=== PATIENT | female | born 1940 | race Caucasian/White ===

== ENCOUNTER 2017-04-25 05:42 | Day surgery (SDC) | payer OTHER ==
--- NOTE | 2017-04-24 09:32 | PREOPHP ---
DATE OF ADMISSION: 04/25/2017 HISTORY OF PRESENT ILLNESS: This 76-year-old patient is admitted for elective cataract surgery of t he right eye. The patient has had progressive deterioration of vision over the last 2 to 3 years wi thout prior history of injury to the eye. 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 In addition, the patient has a dry e ye condition and uses Restasis. Systemic history is positive for hypertension which is currently be ing controlled with aspirin and Diovan. The aspirin was discontinued 1 week prior to surgery. ALLERGIES: THERE ARE NO KNOWN ALLERGIES. PHYSICAL EXAMINATION: The visual acuity with best correction is 20/50 in the right eye and 20/40 in the left eye. Slit lamp examination reveals anterior cortical nuclear sclerotic and posterior subc apsular cataract changes in the right eye. Applanation tonometry is 13 mmHg in the right eye and 12 mmHg in the left eye. 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 DIAGNOSIS: Cataract, right eye. PLAN: Cataract extraction with lens implant, right eye. The risks and alternatives to the surgery have been discussed with the patient as well as the hopeful improvement of visual acuity leading to a greater ability to perform activities of daily living. The patient understands this and consents to proceed with surgery. Dictated By: ISAEL VOGEL/ANNA Conf#: [id number] DID#: [id number]
[~2017-04-25] VITALS: Ht 152.4 cm; Wt 67.2 kg
[2017-04-25] VITALS (7 sets, daily range): BP systolic 125–210; BP diastolic 61–104; PULSE 56–61; RESP 14–16; Ht 152.4 cm; Wt 67.2 kg
[~2017-04-25 05:42] MED LIST: ASPI-727; ATOR40TA68 PO; CIPROFLOXACIN 0.3% 2.5 ML OPH OPER SCH; CLOP75TA27 PO; CYCLOPENTOLATE/PHENYLEPH 2 ML OPH OPER SCH; DICLOFENAC 0.1% 2.5 ML OPH OPER SCH; ENAL5TAB81 PO; FOLIC ACID; TROPICAMIDE 1% 2 ML OPH OPER SCH
[2017-04-25] MEDS ORDERED: CEFAZOLIN 1 GM INJ ONE (06:15)
[2017-04-25] MEDS ORDERED: DEXAMETHASONE 4 MG/ML 1 ML INJ ONE (06:15)
[2017-04-25] MEDS ORDERED: GENTAMICIN 80 MG INJ ONE (06:15)
[2017-04-25] MEDS ORDERED: LIDOCAINE 4% (MPF) 5 ML INJ ONE (06:15)
[2017-04-25] MEDS ORDERED: CARBACHOL 0.01% 1.5 ML OPH INJ ONE (06:15)
[2017-04-25] MEDS ORDERED: EPINEPHrine 1 MG INJ ONE (06:15)
[2017-04-25] MEDS ORDERED: HYALURONATE/CHONDROITIN 1ML OPH INJ ONE (06:16)
[2017-04-25] MEDS ORDERED: PROPOFOL 20 ML ONE (07:00)
[2017-04-25] MEDS ORDERED: LIDOCAINE 1% (MPF) 30 ML INJ ONE (07:02)
[2017-04-25] MEDS ORDERED: CARBACHOL 0.01% 1.5 ML OPH INJ IO ONE (07:05)
[2017-04-25] MEDS ORDERED: HYALURONATE/CHONDROITIN 1ML OPH INJ IO ONE (07:05)
[2017-04-25] MEDS ORDERED: DEXAMETHASONE 4 MG/ML 1 ML INJ INJ ONE (07:05)
[2017-04-25] MEDS ORDERED: CEFAZOLIN 1 GM INJ INJ ONE (07:05)
[2017-04-25] MEDS ORDERED: VALS40TA2 PO (07:07)
[2017-04-25] MEDS ORDERED: OMEP20CA16 PO (07:07)
[2017-04-25] MEDS ORDERED: SOD CHLORIDE 0.9% 1,000 ML IV SCH (07:30)
[2017-04-25] MEDS ORDERED: hydrALAzine 20 MG INJ IV PRN (08:00)
[2017-04-25] MEDS ORDERED: ONDANSETRON 4 MG INJ IV PRN (08:00)
[2017-04-25] MEDS ORDERED: LABETALOL HCL 20MG INJ IV PRN (08:00)
[2017-04-25] MEDS ORDERED: FENTAnyl 50 MCG/ML VIAL IV PRN ×2 (08:00)
[2017-04-25] MEDS ORDERED: HYDROmorphONE (0.2 MG/ML) 10ML SYG IV PRN ×3 (08:00)
[2017-04-25] MEDS ORDERED: MEPERIDINE 25 MG INJ IV PRN (08:00)
--- NOTE | 2017-04-25 09:27 | OPR ---
DATE OF OPERATION: PREOPERATIVE DIAGNOSIS: Cataract, right eye. POSTOPERATIVE DIAGNOSIS: Cataract, right eye. OPERATION PERFORMED: Cataract extraction with lens implant, right eye. SURGEON: Isael dominguez. ANESTHESIA: Local standby. ANESTHESIOLOGIST: Dr. Lewis OPERATION: Phacoemulsification with posterior chamber intraocular lens implant, right eye. PROCEDURE: The patient was brought to the operating room and placed on the table with an IV in plac e and the patient attached to an performance engineer. Oxygen was given via face mask. After some intravenous sedation was administered, local anesthesia was given using Xylocaine 2% with epinephrine, mixed with Marcaine 0.5%. This was given in a lid block and retrobulbar injection. The patient was then prepped and draped in the usual sterile manner. A wire lid speculum was inserted between the lids of the right eye. A Superblade was used to enter t he anterior chamber at the corneoscleral limbus at the 10:30 o'clock position. A separate incision w as made using a 3.0-mm keratome which entered the corneoscleral junction at the 12 o'clock position. Through this 3-mm opening, an irrigating cystotome was introduced into the anterior chamber. The ch jose angel was filled with Viscoat and an anterior capsulotomy was performed. Balanced salt solution was then used for hydrodissection of the lens. A phacoemulsification handpiece was then brought into th e field and introduced into the anterior chamber. The lens nucleus was emulsified using a deep groov e and cracking the nucleus into quadrants. Following this, each quadrant was aspirated and emulsifie d at the pupillary margin. After this was completed, the irrigation/aspiration handpiece was brought to the field, introduced i nto the posterior chamber, and the lens cortical material was removed. When this was completed, digna tional Viscoat was injected into the anterior and posterior chambers. The 3-mm opening had its internal lips enlarged, and then the posterior chamber intraocular lens angelo suring 20.0 diopters (Bausch and Lomb model LI61AO) was then injected into the posterior chamber usi ng the lens injector system. After the leading haptic was introduced into the capsular bag and the l ens optic was present in the center of the eye, the injector was removed and the trailing haptic was grasped with non-toothed forceps and introduced into the capsular fold superiorly. A [place]inskey hook w as then used to rotate the intraocular lens so that the lips were oriented in the horizontal meridia n. One 10-0 nylon suture was placed across the wound. Prior to tying, the irrigation/aspiration handpiece was reintroduced into the anterior chamber to re move the Viscoat. Miochol was instilled to constrict the pupil, and then the 10-0 nylon suture was t ied. The ends were cut short and then the knot was buried. Then, 0.5 mL of dexamethasone and 0.5 mL of Ancef were injected into the sub-Tenon space in the infe rior fornix. Ciloxan drops were then placed on the surface of the eye. The speculum was removed and a patch was applied. The patient then left the operating room in satisfactory condition. Dictated By: ISAEL VOGEL/ANNA Conf#: [id number] DID#: [id number]
== END 2017-04-25 09:18 | disposition home or self-care (01) ==
LOC: SDS 05:42
PROVIDERS: ATTEND Ophthalmology
DX: H25.11 Age-related nuclear cataract, right eye (principal); I10 Essential (primary) hypertension; I25.2 Old myocardial infarction
CPT/HCPCS: 66984; J0171; J0360; J0690; J1100; J1580; V2632

== ENCOUNTER 2019-03-26 06:41 | Day surgery (SDC) | payer OTHER ==
[~2019-03-26] VITALS: Ht 152.4 cm; Wt 64.9 kg
[2019-03-26] VITALS (9 sets, daily range): BP systolic 140–169; BP diastolic 68–84; PULSE 52–72; RESP 12–27; Ht 152.4 cm; Wt 64.9 kg
--- NOTE | 2019-03-26 06:40 | PREOPHP ---
DATE OF ADMISSION: 03/26/2019 HISTORY OF PRESENT ILLNESS: This 75-year-old patient is admitted for elective cataract surgery of th e left eye. The patient has had decreased vision in the left eye which has been progressive in natur e for the past 2 years' time. The patient had cataract surgery performed on the right eye 2 years ag o with good visual results. The patient also has a history of chronic open angle glaucoma, currently being controlled with Travatan-Z topical medication. CURRENT MEDICATIONS: Include: 1. Atorvastatin. 2. Flonase. 3. ProAir. 4. Cozaar. 5. Loratadine. ALLERGIES: There are no known allergies other than CHLORHEXIDINE SOLUTION. PHYSICAL EXAMINATION: The visual acuity with correction is 20/40 in the right eye and 20/80 in the l eft eye. Slit lamp examination reveals a posterior chamber intraocular lens in appropriate position in the right eye and an anterior cortical and nuclear sclerotic cataract in the left eye. Applanatio n tonometry is 8 mmHg in the left eye. Examination of the retina reveals the presence of moderate op tic disc cupping in both eyes. The macular region appears within normal limits. DIAGNOSIS: Cortical and nuclear cataract, left eye. PLAN: Cataract extraction with lens implant, left eye. The risks and alternatives to cataract surge ry have been discussed with the patient as well as the hope for improvement of visual acuity leading to greater ability to perform activities of daily living. The patient understands this and agrees to proceed with surgery. Dictated By: ISAEL VOGEL/ANNA Conf#: [id number] DID#: [id number]
[~2019-03-26 06:41] MED LIST changes: -CIPROFLOXACIN 0.3% 2.5 ML OPH OPER SCH; -CLOP75TA27 PO; -CYCLOPENTOLATE/PHENYLEPH 2 ML OPH OPER SCH; -DICLOFENAC 0.1% 2.5 ML OPH OPER SCH; -ENAL5TAB81 PO; -FOLIC ACID; +OMEP20CA16 PO; -TROPICAMIDE 1% 2 ML OPH OPER SCH; +VALS40TA2 PO
[2019-03-26] MEDS ORDERED: DICLOFENAC 0.1% 2.5 ML OPH OPER SCH (08:00)
[2019-03-26] MEDS ORDERED: CYCLOPENTOLATE/PHENYLEPH 2 ML OPH OPER SCH (08:00)
[2019-03-26] MEDS ORDERED: MOXIFLOXACIN 0.5% 3 ML OPH OPER SCH (08:00)
[2019-03-26] MEDS ORDERED: SOD CHLORIDE 0.9% 1,000 ML IV SCH (08:00)
[2019-03-26] MEDS ORDERED: TROPICAMIDE 1% 15 ML OPH OPER SCH (08:00)
[2019-03-26] MEDS ORDERED: ATOR10TA65 PO (08:16)
[2019-03-26] MEDS ORDERED: OMEP20CA16 PO (08:16)
[2019-03-26] MEDS ORDERED: HYDR25TA6 PO (08:16)
[2019-03-26] MEDS ORDERED: LORA10TA3 PO (08:17)
[2019-03-26] MEDS ORDERED: GENTAMICIN 80 MG INJ ONE (08:25)
[2019-03-26] MEDS ORDERED: CEFAZOLIN 1 GM INJ ONE (08:25)
[2019-03-26] MEDS ORDERED: CARBACHOL 0.01% 1.5 ML OPH INJ ONE (08:25)
[2019-03-26] MEDS ORDERED: TETRACAINE 0.5% 4 ML OPH ONE (08:25)
[2019-03-26] MEDS ORDERED: LIDOCAINE 4% (MPF) 5 ML INJ ONE (08:25)
[2019-03-26] MEDS ORDERED: DEXAMETHASONE 4 MG/ML 1 ML INJ ONE (08:25)
[2019-03-26] MEDS ORDERED: EPINEPHrine 1 MG INJ ONE (08:26)
[2019-03-26] MEDS ORDERED: NA HYALURONATE/CHONDROITIN 0.5 ML SYG ONE (08:26)
--- NOTE | 2019-03-26 08:34 | PREAC ---
Date/Time of Note Date/Time of Note DATE: 03/26/19 TIME: 08:32 Anesthesia Eval and Record Evaluation Time Pre-Procedure Interview DATE: 03/26/19 TIME: 08:32 Age 78 Sex female NPO: 8 hrs Preoperative diagnosis left cataract Planned procedure left CE with IOL Implant Past Medical History Past Medical History: Includes Cardio: HTN, Dyslipidemia Surgery & Anesthesia Issues No known issue Meds Anticoagulation: No Beta Symone within 24 hr: No Reason Beta Symone not given: Pt. not on B-Symone Reported Medications Loratadine* (Loratadine*) 10 Mg Tablet, 10 MG PO DAILY, #30 TAB 03/26/19 Atorvastatin Calcium (Atorvastatin Calcium) 10 Mg Tablet, 10 MG PO QHS, #30 TAB 03/26/19 Hydrochlorothiazide* (Hydrochlorothiazide*) 25 Mg Tab, 25 MG PO DAILY, #30 TAB 03/26/19 Omeprazole* (Omeprazole*) 20 Mg Capsule.dr, 20 MG PO DAILY, #30 CAP 03/26/19 Discontinued Reported Medications Valsartan* (Diovan*) 40 Mg Tablet, 40 MG PO DAILY, TAB 04/25/17 Omeprazole* (Omeprazole*) 20 Mg Capsule.dr, 20 MG PO DAILY, #30 CAP 04/25/17 Aspirin (Adult Aspirin) 81 Mg Tab.chew 08/04/10 Discontinued Scripts Atorvastatin* (Atorvastatin*) 40 Mg Tablet, 40 MG PO HS for 40 Days, TAB Prov:ROYARONY ASSEMBLER FITTER 07/25/15 Current Medications Diclofenac Sodium (Voltaren 0.1%) 1 drop Q5 MIN X 3 OPER Last administered on 03/26/19at 07:54; Admin Dose 1 DROP; Start 03/26/19 at 08:00; Stop 03/26/19 at 18:00 Tropicamide (Mydriacyl 1%) 1 drop Q5 MIN X3 OPER Last administered on 03/26/19at 07:53; Admin Dose 1 DROP; Start 03/26/19 at 08:00; Stop 03/26/19 at 18:00 Moxifloxacin HCl (Vigamox) 1 drop Q5 MIN X 3 OPER Last administered on 03/26/19at 07:54; Admin Dose 1 DROP; Start 03/26/19 at 08:00; Stop 03/26/19 at 18:00 Cyclopentolate/ Phenylephrine (Cyclomydril Oph 2 ml) 1 drop Q5 MIN X 3 OPER Last administered on 03/26/19at 07:54; Admin Dose 1 DROP; Start 03/26/19 at 08:00; Stop 03/26/19 at 18:00 Sodium Chloride 1,000 ml @ 25 mls/hr Q24H IV ; Start 03/26/19 at 08:00; Stop 03/26/19 at 18:00 Meds reviewed: Yes Allergies Coded Allergies: No Known Drug Allergy (Verified Allergy, Unknown, 03/26/19) Allergies Reviewed: Yes Labs/Studies Labs Reviewed: Reviewed by anesthesiologist test: N/A Studies: ECG (SB), CXR Pre-procedure Exam Airway: Adequate mouth opening Mallampati: Mallampati II Teeth: Normal Lung: Normal Heart: Normal ASA Physical Status ASA physical status: 2 Emergency: None Planned Anesthetic General/MAC: MAC Planned Pain Management Parenteral pain med, Local by surgeon Pre-operative Attestations Prior to commencing anesthesia and surgery, the patient was re-evaluated, there was verification of: *The patient's identity *The results of appropriate recent lab work and preoperative vital signs *The above evaluation not changing prior to induction *Anesthetic plan, risk benefits, alternative and complications discussed with patient/family; questions answered; patient/family understands, accepts and wishes to proceed. TRUDY JOSEPH BRAILLE AND TALKING BOOKS CLERK March 26, 2019 08:34
[2019-03-26] MEDS ORDERED: LIDOCAINE 2% (SDV) 5 ML INJ ONE (08:41)
[2019-03-26] MEDS ORDERED: PROPOFOL 20 ML ONE (08:41)
[2019-03-26] MEDS ORDERED: hydrALAzine 20 MG INJ IV PRN (09:00)
[2019-03-26] MEDS ORDERED: OXYCODONE/ACETAMINOPHEN (5/325) TAB PO PRN (09:00)
[2019-03-26] MEDS ORDERED: LABETALOL HCL 20MG INJ IV PRN (09:00)
[2019-03-26] MEDS ORDERED: FENTAnyl 50 MCG/ML VIAL IV PRN (09:00)
[2019-03-26] MEDS ORDERED: ONDANSETRON 4 MG INJ IV PRN (09:00)
[2019-03-26] MEDS ORDERED: HYDROmorphONE 1 MG/5 ML IV SYRINGE IV PRN (09:00)
--- NOTE | 2019-03-26 09:24 | SIPON ---
Date/Time of Note Date/Time of Note DATE: 03/26/19 TIME: 09:22 Operative Report Preoperative Diagnosis nuclear sclerotic cataract os Postoperative Diagnosis same Operation/Procedure Performed cataract extraction with lens impalnt os Surgeon isael ni assistant plant manager none Anesthesia: MAC Estimated blood loss: none Transfusion Required none Specimen none Grafts/Implants posterior chamber lens implant Complications none ISAEL NI MD March 26, 2019 09:24
--- NOTE | 2019-03-26 09:30 | PAC ---
Date/Time of Note Date/Time of Note DATE: 03/26/19 TIME: 09:28 Post-Anesthesia Notes Post-Anesthesia Note Last documented vital signs BP 158/85 Sp02 100% HR 58 RR12 Temp 98.8F Activity: WNL Respiratory function: WNL Cardiovascular function: WNL Mental status: Baseline Pain reasonably controlled: Yes Hydration appropriate: Yes Nausea/Vomiting absent: Yes TRUDY JOSEPH CRNA March 26, 2019 09:30
--- NOTE | 2019-03-26 09:46 | OPR ---
DATE OF OPERATION: 03/26/2019 PREOPERATIVE DIAGNOSES: Nuclear sclerotic cataract, left eye. POSTOPERATIVE DIAGNOSES: Nuclear sclerotic cataract, left eye. OPERATION PERFORMED: Cataract extraction with lens implant, left eye. SURGEON: Isael Ni M.D. ANESTHESIOLOGIST: Silvana Gonzalez CRNA. ANESTHESIA: Local standby. PROCEDURE: The patient was brought to the operating room and placed on the table with an IV in place and the patient attached to an sidewalk repairer. Oxygen was given via face mask. After some intravenous sedation was administered, local anesthesia was given using Xylocaine 2% with epinephrine, mixed with Marcaine 0.5%. This was given in a lid block and retrobulbar injection. The patient was then prepped and draped in the usual sterile manner. A wire lid speculum was inserted between the lids of the left eye. A Superblade was used to enter th e anterior chamber at the corneoscleral limbus at the 10:30 o'clock position. A separate incision wa s made using a 3.0-mm keratome which entered the corneoscleral junction at the 12 o'clock position. Through this 3-mm opening, an irrigating cystotome was introduced into the anterior chamber. The renée mber was filled with Viscoat and an anterior capsulotomy was performed. Balanced salt solution was t hen used for hydrodissection of the lens. A phacoemulsification handpiece was then brought into the field and introduced into the anterior chamber. The lens nucleus was emulsified using a deep groove and cracking the nucleus into quadrants. Following this, each quadrant was aspirated and emulsified at the pupillary margin. After this was completed, the irrigation/aspiration handpiece was brought to the field, introduced in to the posterior chamber, and the lens cortical material was removed. When this was completed, addit ional Viscoat was injected into the anterior and posterior chambers. The 3-mm opening had its internal lips enlarged, and then the posterior chamber intraocular lens jaime uring 19.5 diopters ([employer] Model LI61AO) was then injected into the posterior c hamber using the lens injector system. After the leading haptic was introduced into the capsular bag and the lens optic was present in the center of the eye, the injector was removed and the trailing h aptic was grasped with non-toothed forceps and introduced into the capsular fold superiorly. A Sinsk ey hook was then used to rotate the intraocular lens so that the lips were oriented in the horizontal meridian. One 10-0 nylon suture was placed across the wound. Prior to tying, the irrigation/aspiration handpiece was reintroduced into the anterior chamber to rem ove the Viscoat. Miochol was instilled to constrict the pupil, and then the 10-0 nylon suture was ti ed. The ends were cut short and then the knot was buried. Then, 0.5 mL of dexamethasone and 0.5 mL of Ancef were injected into the sub-Tenon space in the infer ior fornix. Ciloxan drops were then placed on the surface of the eye. The speculum was removed and a patch was applied. The patient then left the operating room in satisfactory condition. Dictated By: ISAEL VOGEL/ANNA Conf#: [id number] DID#: [id number] CC: ISAEL NI MD;*EndCC*
== END 2019-03-26 10:27 | disposition home or self-care (01) ==
LOC: SDS 06:41
PROVIDERS: ATTEND Ophthalmology
DX: H25.12 Age-related nuclear cataract, left eye (principal); H40.1190 Primary open-angle glaucoma, unspecified eye, stage unspecified; I10 Essential (primary) hypertension; I70.0 Atherosclerosis of aorta
CPT/HCPCS: 66984; J0171; J0360; J0690; J1100; J1580; J2405; J7030; V2632